=== PATIENT | male | born 1990 | race African-American/Black ===

== ENCOUNTER 2017-01-16 08:14 | Emergency (ER) | payer MEDICAID ==
[~2017-01-16] VITALS: Ht 165.1 cm; Wt 60.0 kg
[~2017-01-16 08:14] MED LIST: IBUP-232 PO
[2017-01-16 08:15] VITALS: BP 137/85; PULSE 84; RESP 15; TEMP 98.2; O2SAT 98
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
[2017-01-16] MEDS ORDERED: IBUP800T23 PO (08:56)
[2017-01-16] MEDS ORDERED: ROBA500T PO (08:56)
[2017-01-16] MEDS ORDERED: ORPHENADRINE INJ 60 MG/2 ML AMP IM ONE (09:00)
[2017-01-16] MEDS ORDERED: KETOROLAC TROMETHAMINE 60 MG/2 ML (IM) VIAL IM ONE (09:00)
== END 2017-01-16 09:09 | disposition home or self-care (01) ==
LOC: NEPK 08:14
DX: M43.6 Torticollis (principal)
CPT/HCPCS: 99283

== ENCOUNTER 2017-01-28 04:48 | Emergency (ER) | payer MEDICAID ==
[~2017-01-28] VITALS: Ht 167.6 cm; Wt 60.0 kg
[~2017-01-28 04:48] MED LIST changes: +IBUP800T23 PO; +ROBA500T PO
[2017-01-28 04:49] VITALS: BP 143/84; PULSE 84; RESP 16; TEMP 98.9; O2SAT 97
--- NOTE | 2017-01-28 05:07 | PD ---
HPI Chief Complaint: Back/ Neck Pain or Injury Time Seen by Provider: 05:02 Travel History International Travel<30 days: No Contact w/Intl Traveler<30days: No Traveled to known affect area: No History of Present Illness HPI 26-year-old black male presents emergency Department with complains of chronic left-sided neck pain. This is a patient was seen in the emergency department earlier this month for neck pain. The patient actually states that he's been having pain in his neck now for over a year. States the pain is worse when he moves his head to the right. He states he has pain up and down his neck into his left side of his head. He's been taking ibuprofen without relief. He states that he has not seen a primary care doctor regarding this. He states that he would like to get testing done to figure out what the etiology of his pain is. He also states that he occasionally gets pain in all of his joints. He is unsure whether this is a vascular problem. He denies any IV drug abuse. He denies any recent illness or trauma. He denies any fever chills, nausea, vomiting, numbness or tingling. PFSH Past Medical History Narrative Medical Anxiety, lumbar HNP, substance abuse (marijuana) Anxiety: Yes Developmental Delay: No Diminished Hearing: No Musculoskeletal: Yes (herniated disc lumbar) Immunizations Current: Yes Tetanus Vaccination: < 5 Years Past Surgical History Surgical History: No Previous Surgery Social History Alcohol Use: Yes (on occasion) Tobacco Use: No Substance Use: Yes (MARIJUANA DAILY) Allergies-Medications (Allergen,Severity, Reaction): Coded Allergies: Penicillin (Verified Allergy, Mild, HIVES, 01/28/17) Reported Meds & Prescriptions Reported Meds & Active Scripts Active Ibuprofen 800 Mg Tab 800 Mg PO Q6HR PRN Robaxin (Methocarbamol) 500 Mg Tab 500 Mg PO QID PRN Ibuprofen 600 Mg Tab 600 Mg PO Q6H PRN Review of Systems Except as stated in HPI: all other systems reviewed are Neg Physical Exam Narrative GENERAL: Well-developed, well-nourished in no apparent distress. Nontoxic appearing. HEAD: Normocephalic, atraumatic. EYES: Pupils equal round and reactive. Extraocular motions intact. No scleral icterus. No injection or drainage. ENT: Nose clear. Throat without erythema, tonsillar hypertrophy or exudate. Uvula midline. Airway patent. NECK: Trachea midline. Supple, tender left paracervical muscles, moves head freely. No central bony tenderness or spasm. Patient's turning his head right and left freely without obvious discomfort. He rotates and flexes and extends his neck. The skin is intact. CARDIOVASCULAR: Regular rate and rhythm without murmurs, gallops, or rubs. RESPIRATORY: Clear to auscultation. Breath sounds equal bilaterally. No wheezes , rales, or rhonchi. GASTROINTESTINAL: Abdomen soft, non-tender, nondistended. No hepato-splenomegaly , or palpable masses. No guarding. EXTREMITIES: No clubbing, cyanosis, or edema. No joint tenderness. BACK: Nontender without deformity. No flank tenderness. NEUROLOGICAL: Awake, alert and oriented x 3 .Cranial nerves grossly intact. Motor and sensory grossly within normal limits. Normal speech. Data Data Last Documented VS Vital Signs Date Time Temp Pulse Resp B/P Pulse Ox O2 Delivery O2 Flow Rate FiO2 01/28/17 04:49 98.9 84 16 143/84 97 Room Air [facility] Medical Decision Making Medical Screen Exam Complete: Yes Emergency Medical Condition: Yes Medical Record Reviewed: Yes Differential Diagnosis Differential diagnoses: Acute neck pain, chronic neck pain, spasm, arthritis Narrative Course Patient presents with complaints of chronic neck pain. I've explained to the patient that there is no one test that we can determine the etiology of his pain. He needs to follow-up with a primary care doctor if he needs additional imaging, treatment or other evaluations that we cannot do through the ER. Diagnosis Primary Impression: Chronic neck pain Patient Instructions: General Instructions Additional Instructions: Rest. Ice for the next 3 days followed by heat . Zanaflex and Voltaren. Follow-up with a primary care doctor in one week. Return to the ER for emergencies. Med/Other Pt SpecificInfo: Prescription(s) given Disposition: 01 DISCHARGE HOME Condition: Stable Yoav Alfredo Jan 28, 2017 05:07
[2017-01-28] MEDS ORDERED: DICL75TA PO (05:08)
[2017-01-28] MEDS ORDERED: ZANA4CAP PO (05:08)
== END 2017-01-28 05:38 | disposition home or self-care (01) ==
LOC: NEPD 04:48
DX: M54.2 Cervicalgia (principal); G89.29 Other chronic pain; F41.9 Anxiety disorder, unspecified; Z79.899 Other long term (current) drug therapy; Z88.0 Allergy status to penicillin
CPT/HCPCS: 99284

== ENCOUNTER 2017-05-05 08:19 | Emergency (ER) | payer MEDICAID ==
[~2017-05-05] VITALS: Ht 167.6 cm; Wt 63.0 kg
[~2017-05-05 08:19] MED LIST changes: +DICL75TA PO; +ZANA4CAP PO
[2017-05-05 08:21] VITALS: BP 154/86; PULSE 76; RESP 20; TEMP 97.6; O2SAT 100
[2017-05-05] MEDS ORDERED: [UNRECOGNIZED DRUG - OTHER] PO (08:24)
--- NOTE | 2017-05-05 08:41 | PD ---
HPI Chief Complaint: ENT Complaint Time Seen by Provider: 08:41 Travel History International Travel<30 days: No Contact w/Intl Traveler<30days: No Traveled to known affect area: No History of Present Illness HPI 26-year-old male came to the emergency room with history of feeling like there is a bug in his right ear since he can feel movement. Patient says that [place] was in [place] beach [place] and he thinks that's where he might have gotten a bug inside the ear. He seemed extremely anxious. He is otherwise a healthy person. Vital signs are stable. No history of bleeding or pain from the. [facility] Past Medical History Narrative Medical List of his past medical, surgical, social and family history as reviewed from the nursing note. Anxiety: Yes Developmental Delay: No Diminished Hearing: No Musculoskeletal: Yes (herniated disc lumbar) Immunizations Current: Yes Influenza Vaccination: No Past Surgical History Surgical History: No Previous Surgery Social History Alcohol Use: Yes (on occasion) Tobacco Use: No Substance Use: Yes (MARIJUANA DAILY) Allergies-Medications (Allergen,Severity, Reaction): Coded Allergies: penicillin G (Unverified Allergy, Mild, HIVES, 05/05/17) Comments List of his allergies reviewed from the nursing note. Reported Meds & Prescriptions Reported Meds & Active Scripts Active Reported [2 abt] Unknown Dose PO TID Narrative Medication List of his home medications reviewed from the nursing note. Review of Systems Except as stated in HPI: all other systems reviewed are Neg Physical Exam Narrative GENERAL: Awake, alert, anxious SKIN: Focused skin assessment warm/dry. HEAD: Atraumatic. Normocephalic. EYES: Pupils equal and round. No scleral icterus. No injection or drainage. ENT: No nasal bleeding or discharge. Mucous membranes pink and moist. Bilateral ear canal has sand granules but no insects, or alive noticed. NECK: Trachea midline. No JVD. CARDIOVASCULAR: Regular rate and rhythm. No murmur appreciated. RESPIRATORY: No accessory muscle use. Clear to auscultation. Breath sounds equal bilaterally. GASTROINTESTINAL: Abdomen soft, non-tender, nondistended. Hepatic and splenic margins not palpable. MUSCULOSKELETAL: No obvious deformities. No clubbing. No cyanosis. No edema. NEUROLOGICAL: Awake and alert. No obvious cranial nerve deficits. Motor grossly within normal limits. Normal speech. PSYCHIATRIC: Appropriate mood and affect; insight and judgment normal. Data Data Last Documented VS [facility] Medical Decision Making Medical Screen Exam Complete: Yes Emergency Medical Condition: Yes Medical Record Reviewed: Yes Differential Diagnosis Foreign body in ear Narrative Course 9:51 AM the ears were flushed and the same granule particles came out. Patient will be discharged home. Please refer to my procedure note. Procedures Procedure Narrative Ear canal flushing/irrigation: Bilateral ear canals were irrigated with 500 mL of normal saline. 60 cc syringe attached to a 14-gauge Angiocath plastic tip was used and bilaterally ear canals were irrigated. Sand particles and other debris was noticed to be flushed out. No insects. Patient tolerated the procedure well. EKG Prior to Arrival: No Diagnosis Primary Impression: Foreign body in ear Qualified Codes: T16.9XXA - Foreign body in ear, unspecified ear, initial encounter Referrals: Primary Care Physician Additional Instructions: Please return to the ER if the condition worsens or any other new concerns. Otherwise follow-up with her primary care. Disposition: 01 DISCHARGE HOME Condition: Stable Cora Barboza MD May 05, 2017 08:41
== END 2017-05-05 09:49 | disposition home or self-care (01) ==
LOC: NEPC 08:19
DX: T16.1XXA Foreign body in right ear, initial encounter (principal)
CPT/HCPCS: 99283